=== PATIENT | female | born 1975 | race Caucasian/White ===

== ENCOUNTER 2016-06-01 15:47 | Emergency (ER) | payer OTHER ==
[2016-06-01 16:16] VITALS: BP 132/82
--- OUTSIDE RECORDS SUMMARY | 2016-06-01 16:26 | XMS REPORT | Continuity of Care Document ---
:1975 Demographics Phone Unavailable Preferred Language Unknown Marital Status Unknown Adventist Affiliation Unknown Race Unknown Ethnic Group Unknown Author Organization [facility] ([facility]) Address [place] [address] Phone [phone] Care Team Providers Name Role Phone Unavailable Primary Care Provider Unavailable Source Comments This disclosure is being made pursuant to the Care Everywhere program, applicable federal and state laws, and may not contain all informaitonavailable regarding this patient.[facility] ([facility]) Active Allergies and Adverse Reactions Not on File Current Medications Not on file Active Problems Not on file Social History Tobacco Use Types Packs/Day Years Used Date Never Assessed Plan of Care Health Maintenance Due Date Last Done Comments Hepatitis B Vaccine (1 of 3 - Primary Series) 1975 Tdap Vaccine 1984 Lipid Disorder Screening 1991 MMR Vaccine 1991 Td Vaccine 1991 Cervical Cancer Screening 2003 Mammogram 2013 Influenza Vaccine: Seasonal (#1) 10/25/2015 Results from Last 3 Months Not on file
[2016-06-01 17:11] LABS: Urine Bilirubin Negative (NEGATIVE); Urine Blood 50 /ul (NEGATIVE); Urine Ketone Negative (NEGATIVE); Urine Nitrite Negative (NEGATIVE); Urine Protein Negative (NEGATIVE); Urine Specific Gravity >=1.030 SP.GR. (1.005-1.010); Urine Urobilinogen Normal (NORMAL); Urine pH 5.5 pH (5.0-7.0)
[2016-06-01 17:40] LABS: Urine Appearance Clear; Urine Color Yellow
[2016-06-01 17:41] LABS: Urine Bacteria TRACE; Urine Mucus Many - 3+; Urine Other Crystal Few - 1+ /hpf; Urine RBC TRACE /hpf (0-5); Urine WBC TRACE /hpf (0-5)
--- NOTE | 2016-06-01 17:44 | ERNOTE ---
ER Female HPI Date of Service: 06/01/16 Stated Complaint: UTERINE PAIN - POSSIBLE Presenting Symptoms: pelvic pain Time Seen by Provider: 06/01/16 16:09 Source: patient Exam Limitations: no limitations Immunizations: IMMUNIZATION HX Immunizations Up to Date Yes History of Influenza Vaccine No Hx Pneumococcal Vaccination No Allergies/Adverse Reactions: Allergies Penicillins Allergy (Mild, Verified 06/01/16 16:06) Hives Sulfa (Sulfonamide Antibiotics) [Sulfa(Sulfonamide Antibiotics)] Allergy (Mild, Verified 06/01/16 16:06) Hives levofloxacin [From Levaquin] Adverse Reaction (Mild, Verified 06/01/16 16:06) Itching Home Medications: HOME MEDICATIONS Sertraline HCl [Zoloft] 150 mg PO DAILY 04/08/15 [Last Taken Unknown] ALPRAZolam [Xanax] 0.5 mg PO TID PRN 07/08/15 [Last Taken Unknown] Naproxen [Naprosyn] 500 mg PO BID PRN #60 tab 02/05/16 [Last Taken Unknown] - History of Present Illness Narrative: A 41-year-old female presents to the emergency room today with complaints of lower abdominal pressure/pain states she is not sure if she is or if she is just going through menopause. States pressures been there for the last week. Date (Duration): 06/01/16 Timing: Present: constant Quality: Present: fullness Radiation: Present: none Activities at Onset: Present: none Prior Abdominal Problems: Present: none Sexual [place] History: Present: same sex partner Associated Symptoms: Present: other. Absent: fever/chills, nausea, vomiting, dysuria, urinary frequency, polyuria, loss of bladder control, low back pain Review of Systems - Review of Systems Constitutional: Present: no symptoms reported EYE: Present: no symptoms reported ENT: Present: no symptoms reported Respiratory: Present: no symptoms reported Cardiology: Present: no symptoms reported Gastrointestinal/Abdominal: Present: no symptoms reported Genitourinary: Present: See HPI - c/o feeling full in pelvic region Musculoskeletal: Present: no symptoms reported Skin: Present: no symptoms reported Neurological: Present: no symptoms reported Endocrine: Present: no symptoms reported Hematologic/Lymphatic: Present: no symptoms reported Psych: Present: no symptoms reported - Patient's Past Medical History Patient History - Medical: Anxiety, Depression Patient History - Cardiac/Respiratory: No pertinent hx Patient History - Cancer: No Hx of Cancer Patient History - Surgical Procedures: No surgical history Patient History - Other: None - Family History Mother Family History - Medical: Diabetes Type 2 Family History - Cardiac/Respiratory: Coronary Heart Disease Father Family History - Medical: Diabetes Type 2 Family History - Cardiac/Respiratory: Coronary Heart Disease - Social History Living Situations: home Abuse History: No History of abuse Psych History: Hx of Anxiety, Hx of Depression Smoking Status: Never smoker Alcohol Use: rarely Drug Use: none - Immunizations Immunizations Up to Date: Yes Hx Pneumococcal Vaccination: No History of Influenza Vaccine: No Physical Exam - Physical Exam General Appearance: Present: wd/wn Eye Exam: Normal inspection: bilateral Ears, Nose, Throat: Present: normal ENT inspection Neck: Present: normal inspection Respiratory: Present: no respiratory distress Cardiovascular/Chest: Present: regular rate, rhythm Gastrointestinal/Abdominal: Present: normal bowel sounds Back Exam: Present: normal inspection Extremity Exam: Present: normal inspection Neurological Exam: Present: alert, oriented, normal mood/affect Skin Exam: Present: normal color Lymphatic Exam: Present: no adenopathy Pelvic Exam: Present: active bleeding - states she is spotting from menstration. . 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 Should return to the ER bleeding becomes worse or discharge is present. Referrals: Sherman Terry DO [Primary Care Provider] -
== END 2016-06-01 18:18 | disposition home or self-care (01) ==
LOC: ER 15:47
DX: N93.9 Abnormal uterine and vaginal bleeding, unspecified (principal); F41.8 Other specified anxiety disorders

== ENCOUNTER 2016-08-10 08:32 | Emergency (ER) | payer OTHER ==
--- OUTSIDE RECORDS SUMMARY | 2016-08-10 09:03 | XMS REPORT | Continuity of Care Document ---
:1975 Demographics Phone Unavailable Preferred Language Unknown Marital Status Unknown Baptism Affiliation Unknown Race Unknown Ethnic Group Unknown Author Organization [facility] ([facility]) Address [place] [address] Phone [phone] Care Team Providers Name Role Phone Unavailable Primary Care Provider Unavailable Source Comments This disclosure is being made pursuant to the Care Everywhere program, applicable federal and state laws, and may not contain all informaitonavailable regarding this patient.[facility] ([facility]) Active Allergies and Adverse Reactions Not on [...]
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
[2016-08-10 10:51] VITALS: BP 115/76
== END 2016-08-10 10:55 | disposition home or self-care (01) ==
LOC: ER 08:32
PROC: 2W3LX1Z Immobilization of Right Lower Extremity using Splint (ICD-10-PCS; principal; 2016-08-10)
DX: S83.421A Sprain of lateral collateral ligament of right knee, initial encounter (principal); W19.XXXA Unspecified fall, initial encounter; Y93.9 Activity, unspecified; Y92.410 Unspecified street and highway as the place of occurrence of the external cause; Y99.0 Civilian activity done for income or pay; F41.8 Other specified anxiety disorders

== ENCOUNTER 2016-10-27 17:21 | Emergency (ER) | payer OTHER ==
[2016-10-27] MEDS ORDERED: IBUPROFEN 400 MG TABLET PO ONE (17:56)
--- OUTSIDE RECORDS SUMMARY | 2016-10-27 17:59 | XMS REPORT | Summary of Care ---
:1975 Author Organization [facility] Address [address] [place] [address] Care Team Providers Name Role Phone Sherman Terry Rosette Primary Care Physician Encounter Date(s): 08/02/16 - 08/02/16 [facility] [address], [address] [place], [place] [address] Discharge Diagnosis: Bilateral knee pain Discharge Disposition: Discharged to Home or Self Care Attending Physician: Marguerite Arguello, PAC Vital Signs No data available for this section Problem List No data available for this section Allergies, Adverse Reactions, Alerts No Known Allergies Medications meloxicam 15 mg oral tablet 1 tab(s), Oral, Daily, # 30 tab(s), 1 Refill(s), Start Date: 06/21/16 9:30:00 CDT, Pharmacy: [facility], [place], [place] Start Date: 06/21/16 Status: OrderedXanax 0.5 mg oral tablet 1 tab(s), Oral, TID, PRN for anxiety, 0 Refill(s), Start Date: 06/21/16 8:54:00 CDT Start Date: 06/21/16 Status: Ordered Results No data available for this section Immunizations No data available for this section Procedures No data available for this section Social History No data available for this section Assessment and Plan No data available for this section
--- OUTSIDE RECORDS SUMMARY | 2016-10-27 18:00 | XMS REPORT | Summary of Care ---
:1975 Author Organization [facility] Address [address] [place] [address] Care Team Providers Name Role Phone Sherman Terry Rosette Primary Care Physician Encounter Date(s): 06/21/16 - 06/21/16 [facility] [address], [address] [place], [place] [address] Discharge Diagnosis: Bilateral knee pain Discharge Disposition: 01 Discharged to Home or Self Care Attending Physician: VIRAL Del Angel Referring Physician: VIRAL Del Angel Vital Signs Most recent to oldest [Reference Range]: 1 Peripheral Pulse Rate [60-100 bpm] 66 bpm (06/21/16 8:49 AM) Blood Pressure [90-130/60-90 mmHg] 139/78mmHg *HI* (06/21/16 8:49 AM) Mean Arterial Pressure, Cuff 98 mmHg (06/21/16 8:49 AM) Most recent to oldest [Reference Range]: 1 Weight Estimated 129.2 kg (06/21/16 8:49 AM) Problem List No data available for this section Allergies, Adverse Reactions, Alerts No Known Allergies Medications Kenalog (office) 160 mg, Intra-articular, ONETIME, First Dose: 06/21/16 10:00:00 CDT, Stop Date: 06/21/16 10:00:00 CDT, Diagnosis: Bilateral knee pain Start Date: 06/21/16 Stop Date: 06/21/16 Status: Completedmeloxicam 15 mg oral tablet 1 tab(s), Oral, Daily, # 30 tab(s), 1 Refill(s), Start Date: 06/21/16 9:30:00 CDT, Pharmacy: [facility], [place], [place] Start Date: 06/21/16 Status: OrderedXanax 0.5 [...]
[2016-10-27] MEDS ORDERED: IBUPROFEN 400 MG TABLET ONE (18:20)
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
[2016-10-27 18:54] LABS: Urine Appearance Bloody; Urine Color Yellow
[2016-10-27 18:55] LABS: Urine Bilirubin Negative (NEGATIVE); Urine Blood 250 /ul (NEGATIVE); Urine Ketone Negative (NEGATIVE); Urine pH 5.5 pH (5.0-7.0)
[2016-10-27 18:56] LABS: Urine Nitrite Negative (NEGATIVE); Urine Protein 30 mg/dL (NEGATIVE); Urine Urobilinogen Normal (NORMAL)
[2016-10-27 18:59] LABS: Urine Bacteria None Seen; Urine RBC >50 /hpf (0-5); Urine WBC 0-5 /hpf (0-5)
[2016-10-27 19:06] VITALS: BP 125/73
== END 2016-10-27 19:30 | disposition home or self-care (01) ==
LOC: ER 17:21
DX: M62.830 Muscle spasm of back (principal); V89.2XXA Person injured in unspecified motor-vehicle accident, traffic, initial encounter; Y92.410 Unspecified street and highway as the place of occurrence of the external cause; Y99.9 Unspecified external cause status; F41.8 Other specified anxiety disorders